=== PATIENT | male | born 1995 | race Caucasian/White ===

== ENCOUNTER 2019-06-16 09:06 | Emergency (ER) | payer BC, OTHER ==
[2019-06-16 09:38] VITALS: BP 133/88
[2019-06-16] MEDS ORDERED: Tetan/Diph/Pertus SYR(Tdap)* 0.5 ML SYR(BOOSTRIX) use SYR contains LATEX IM ONE (09:58)
--- NOTE | 2019-06-16 10:04 | UC ---
Laceration HPI - HPI Summary HPI Summary: 24-year-old male who lacerated his distal left thumb on the metal piece of a fan blade. He is here mostly for a tetanus immunization. The injury happened yesterday. - History Of Current Complaint Chief Complaint: UCLaceration Stated Complaint: LEFT THUMB LACERATION Time Seen by Provider: 06/16/19 09:57 Hx Obtained From: Patient Laceration Location: Finger - Distal left thumb. Mechanism Of Injury: Sharp Trauma Onset/Duration: Sudden Onset, Other - Injury happened yesterday. Severity: Mild Pain Intensity: 2 Aggravating Factors: Nothing - Allergies/Home Medications Allergies/Adverse Reactions: Allergies Allergy/AdvReac Type Severity Reaction Status Date / Time ibuprofen Allergy Rash Verified 06/16/19 09:39 Home Medications: Home Medications NK [No Home Medications Reported] 06/16/19 [History Confirmed 06/16/19] PMH/Surg Hx/FS Hx/Imm Hx Previously Healthy: Yes - Surgical History Surgical History: None - Family History Known Family History: Positive: Non-Contributory - Social History Alcohol Use: None Substance Use Type: None Smoking Status (MU): Never Smoked Tobacco - Immunization History Vaccination Up to Date: Yes Review of Systems All Other Systems Reviewed And Are Negative: Yes Skin: Positive: Other - Lacerated distal left thumb yesterday. Is Patient Immunocompromised?: No Physical Exam Triage Information Reviewed: Yes Appearance: Well-Appearing, No Pain Distress, Well-Nourished Vital Signs: Initial Vital Signs Temp 98.6 F 06/16/19 09:34 Pulse 69 06/16/19 09:34 Resp 16 06/16/19 09:34 BP 133/88 06/16/19 09:34 Pulse Ox 100 06/16/19 09:34 Vital Signs Reviewed: Yes Musculoskeletal: Positive: Strength Intact, ROM Intact, Other: - Good peripheral pulses neuro sensation capillary refill, good finger strength with flexion extension against resistance. Neurological: Positive: Alert, Muscle Tone Normal Skin: Positive: Other - Patient has an approximately 0.5 cm laceration to the radial side of his left thumb which caused a superficial laceration to the nail. There is no evidence of secondary skin infection. Laceration Course/Dx - Course/Dx Course Of Treatment: The patient is comfortable here. He was given a Tdap immunization and is to watch for signs of infection. Change dressing daily. - Diagnosis Provider Diagnosis: Laceration of left thumb Discharge ED - Sign-Out/Discharge Documenting (check all that apply): Patient Departure All imaging exams completed and their final reports reviewed: No Studies - Discharge Plan Condition: Good Disposition: HOME Patient Education Materials: Laceration (DC) Referrals: Jesse Gastelum [Primary Care Provider] - Additional Instructions: You were given a Tdap tetanus immunization which is good for age 10 years. Bacitracin dressing, change daily. Watch for signs of infection such as hot, red, tender, red streaks up your arm and follow-up with her primary care provider as needed. - Billing Disposition and Condition Condition: GOOD Disposition: Home
== END 2019-06-16 10:11 | disposition home or self-care (01) ==
LOC: UCCORT 09:06
DX: S61.012A Laceration without foreign body of left thumb without damage to nail, initial encounter (principal); Z23 Encounter for immunization; Z88.8 Allergy status to other drugs, medicaments and biological substances; W26.8XXA Contact with other sharp object(s), not elsewhere classified, initial encounter; Y92.9 Unspecified place or not applicable
CPT/HCPCS: 90471; 90715; 99201; G0463